=== PATIENT | female | born 1980 | race Two or more races ===

== ENCOUNTER 2017-02-15 21:22 | Emergency (ER) | payer OTHER ==
[~2017-02-15] VITALS: Ht 157.5 cm; Wt 54.4 kg
[2017-02-15] MEDS ORDERED: LEXAPRO10 MG ORAL (21:23)
--- NOTE | 2017-02-15 21:25 | Emergency Room Report ---
History of Present Illness General Source: Patient, EMS Present Illness HPI 36YOF BIBEMS for alleged ETOH abuse tonight. 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 Button Sewer was concerned because "that position is not normal for her." Button Sewer would not let patient in. Patient endorses going to work today, and then drinks with colleagues, took taxi home, couldnt find keys. Denies trauma. Denies other drugs. Denies other medical problems. Allergies: Coded Allergies: No Known Allergies (Unverified , 02/15/17) Patient History Past Medical History: none Past Surgical History: none Pertinent Family History: none Social History: Denies: alcohol use, drug use, smoking Now: No Immunizations: UTD Reviewed Nursing Documentation: PMH: Agreed, PSxH: Agreed Review of Systems All Other Systems: negative except mentioned in HPI Physical Exam Sp02 EP Interpretation: reviewed, normal General Appearance: normal inspection, well appearing, no apparent distress, alert, GCS 15, non-toxic, other - +AOB Head: normocephalic, atraumatic Eyes: bilateral eye EOMI, bilateral eye PERRL ENT: normal ENT inspection, hearing grossly normal, normal voice Neck: normal inspection, full range of motion, supple, no bony tend Respiratory: normal inspection, lungs clear, normal breath sounds, no respiratory distress, no retraction, no wheezing Cardiovascular #1: regular rate, rhythm, no edema Gastrointestinal: normal inspection, normal bowel sounds, non tender, soft, no guarding, no hernia Genitourinary: no CVA tenderness Musculoskeletal: normal inspection, back normal, normal range of motion, Mabel' s Sign negative Neurologic: normal inspection, alert, oriented x3, responsive, 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 Afebrile. Atraumatic Patient with mild ETOH intoxication Observed for short period of time Ambulating with steady gait Knows her address Wants to go home DC Status: improved Disposition: HOME, SELF-CARE JATINDER DONALD M.D. February 15, 2017 21:25
[2017-02-15 21:35] VITALS: BP 144/88
== END 2017-02-15 21:45 | disposition home or self-care (01) ==
LOC: EDBD 21:22 → EMR 21:40
DX: F10.129 Alcohol abuse with intoxication, unspecified (principal)
CPT/HCPCS: 99284